=== PATIENT | female | born 1955 | race Caucasian/White ===

== ENCOUNTER → 2017-11-08 | Outpatient (CLI) | payer OTHER ==
--- NOTE | 2017-11-08 12:28 | Diagnostic Imaging Report ---
Right lower extremity arterial Doppler. INDICATION: Leg pain. Spectral and color-flow imaging of the arterial system of the right lower extremity was performed. There are no prior studies available for comparison. FINDINGS: There is good arterial blood flow in the common femoral, superficial femoral and popliteal arteries. Triphasic and biphasic waveforms were seen and there is no abrupt alteration of velocities to suggest a hemodynamically significant stenosis. However, there is only a single trifurcation artery identified. This is the posterior tibial artery. There seems to fairly good arterial blood flow in this vessel. The anterior tibial and peroneal arteries were not well imaged, however. This may be secondary to trifurcation disease and this may account for the patient's lower leg pain. If further imaging is desired, then CTA of the aorta with bilateral runoffs would be recommended. IMPRESSION: There is good arterial blood flow in the common femoral, superficial femoral and popliteal veins and in the posterior tibial artery. However, the poor visualization of the peroneal and anterior tibial arteries may be secondary to trifurcation disease. Recommendations as above. Dictated by: Dictated on workstation # [id number]
== END ==
LOC: RAD 08:44
PROVIDERS: ATTEND Surgery
DX: I73.9 Peripheral vascular disease, unspecified (principal)
CPT/HCPCS: 93926

== ENCOUNTER 2017-11-22 08:49 | Outpatient (CLI) | payer OTHER ==
[~2017-11-22] VITALS: Ht 157.5 cm; Wt 49.9 kg
[2017-11-22] MEDS ORDERED: LEVE250T5 PO (09:45)
[2017-11-22] MEDS ORDERED: VARE1TAB22 PO (09:45)
== END 2017-11-22 09:55 | disposition home or self-care (01) ==
LOC: PREOP 08:49
PROVIDERS: ATTEND Surgery
DX: Z01.818 Encounter for other preprocedural examination (principal)

== ENCOUNTER 2017-11-27 08:08 | Inpatient (IN) | payer MEDICARE, OTHER ==
[~2017-11-27] VITALS: Ht 157.5 cm; Wt 49.9 kg
[~2017-11-27 08:08] MED LIST: LEVE250T5 PO; VARE1TAB22 PO
--- OUTSIDE RECORDS SUMMARY | 2017-11-27 08:13 | XMS REPORT | CCD ---
Author Author Adore Reyes Organization Adore Reyes MD, [facility] Address [address] [place] [address] Phone Care Team Providers Care Utility Appraiser Name Role Phone PP Unavailable CCM Unavailable Summary Purpose Interface Exchange Insurance Providers Payer name Policy type / Coverage type Covered alliance party ID Effective Begin Date Effective End Date [facility] Commercial Insurance [id number] 2017 Unknown Family history Father Diagnosis Age At Onset Cancer Unknown Mother Diagnosis Age At Onset Breast cancer Unknown Sister Diagnosis Age At Onset Breast cancer Unknown Social History Social History Element Codes Description Effective Dates Marital status Unknown 03/18/2017 Number of children Unknown 1 03/18/2017 Employment Unknown Currently unemployed Disabled 03/18/[address]: [id number] Current every day smoker 03/18/2017 Number of years using tobacco Unknown 40 - 50 44 years 03/18/2017 Number of cigarettes/day Unknown 10 ( Half a pack) 03/18/2017 Alcohol history Unknown pt chooses not to answer 03/18/2017 On Disability Unknown Yes 03/18/2017 Allergies, Adverse Reactions, Alerts Allergies, Adverse Reactions, Alerts data not found Past Medical History Illness Codes Condition Status Onset Date Resolved Date Encounter for general adult medical examination with abnormal findings ICD-9: V70.0 ICD-10: Z00.01 Active 03/18/2017 Unknown Other articular cartilage disorders, right foot ICD-9: 718.07 ICD-10: M24.174 Active 03/18/2017 Unknown Other generalized epilepsy and epileptic syndromes, not intractable, without status epilepticus ICD -9: 345.00 ICD-10: G40.409 Active 03/18/2017 Unknown Other organ or system involvement in systemic lupus erythematosus ICD-9: 710.0 ICD-10: M32.19 Active 03/18/2017 Unknown Tobacco use ICD-9: 305.1 ICD-10: Z72.0 Active 03/18/2017 Unknown Problems Condition Codes Effective Dates Condition Status Encounter for general adult medical examination with abnormal findings ICD-9: V70.0 ICD-10: Z00.01 03/18/2017 Active Other articular cartilage disorders, right foot ICD-9: 718.07 ICD-10: M24.174 03/18/2017 Active Other generalized epilepsy and epileptic syndromes, not intractable, without status epilepticus ICD -9: 345.00 ICD-10: G40.409 03/18/2017 Active Other organ or system involvement in systemic lupus erythematosus ICD-9: 710.0 ICD-10: M32.19 03/18/2017 Active Tobacco use ICD-9: 305.1 ICD-10: Z72.0 03/18/2017 Active Medications Medication Codes Instructions Start Date Stop Date Status Fill Instructions Chantix 1 mg tablet RxNorm: 039839 1 Tablet(s) PO BID 201705/11/2018 Active hydrocodone 10 mg-acetaminophen 325 mg tablet RxNorm: 211238 1-2 Tablet(s) PO TID as needed 03/18/2017 04/16/2017 Active Chantix Starting Month Box 0.5 mg (11)-1 mg (42) tablets in dose pack RxNorm: 258132 1 Tablet(s) PO UD 03/18/20172017 Active Keppra 250 mg tablet RxNorm: 474682 1 Tablet(s) PO BID 201703/12/2018 Active Ambien 10 mg tablet RxNorm: 900040 1 Tablet(s) PO QHS No Start Date Active gabapentin 300 mg capsule RxNorm: 547686 1 Capsule(s) PO TID No Start Date Active etodolac 400 mg tablet RxNorm: 369495 1 Tablet(s) PO daily No Start Date Active Keppra 250 mg tablet RxNorm: 740677 1 Tablet(s) PO BID No Start Date 03/17/2017 Inactive hydrocodone 10 mg-acetaminophen 325 mg tablet RxNorm: 214704 1-2 Tablet(s) PO as needed No Start Date 03/17/2017 Inactive Chantix oral RxNorm: oral No Start Date Inactive Medication Administered No Medication Administered data Immunizations No Immunization data Assessments Condition Codes Effective Dates Encounter for general adult medical examination with abnormal findings ICD-10: Z00.01 ICD-9: V70.0 03/18/2017 Other generalized epilepsy and epileptic syndromes, not intractable, without status epilepticus ICD-10: G40.409 ICD-9: 345.00 03/18/2017 Tobacco use ICD-10: Z72.0 ICD-9: 305.1 03/18/2017 Other organ or system involvement in systemic lupus erythematosus ICD-10: M32.19 ICD-9: 710.0 03/18/2017 Other articular cartilage disorders, right foot ICD-10: M24.174 ICD-9: 718.07 03/18/2017 Reason For Visit Reason For Visit Effective Dates Notes ankle pain 03/18/2017 Results No Results data Review of Systems System Result Effective Dates Constitutional No recent illness 2017 Constitutional No chills 03/18/2017 Constitutional fatigue 03/18/2017 Constitutional No fever 03/18/2017 Constitutional No insomnia 03/18/2017 Constitutional malaise 03/18/2017 Eyes No vision change 03/18/2017 Ears/Nose/Throat/Neck No dental pain Ears/Nose/Throat/Neck No dizziness 2017 Ears/Nose/Throat/Neck No dysphagia 2017 Ears/Nose/Throat/Neck No headache 2017 Ears/Nose/Throat/Neck No hearing loss Ears/Nose/Throat/Neck No nasal allergies 03/18/2017 Ears/Nose/Throat/Neck No sore throat Ears/Nose/Throat/Neck No postnasal drip 03/18/2017 Ears/Nose/Throat/Neck No sinus congestion 03/18/2017 Cardiovascular No chest pain/pressure Cardiovascular No dyspnea 03/18/2017 Cardiovascular No edema 03/18/2017 Cardiovascular No exercise intolerance Cardiovascular No fatigue 03/18/2017 Cardiovascular No near-syncope/dizziness 03/18/2017 Respiratory No chest tightness 2017 Respiratory No cough 03/18/2017 Respiratory No dyspnea 03/18/2017 Respiratory No pedal edema 03/18/2017 Gastrointestinal No abdominal pain 2017 Gastrointestinal No constipation 2017 Gastrointestinal No diarrhea 03/18/2017 Gastrointestinal No gastroesophageal reflux 03/18/2017 Gastrointestinal No nausea 03/18/2017 Gastrointestinal No vomiting 03/18/2017 Genitourinary/Nephrology No dysuria 03/18 Genitourinary/Nephrology No nocturia Genitourinary/Nephrology No urinary incontinence 03/18/2017 Musculoskeletal stiffness 03/18/2017 Musculoskeletal No swelling 03/18/2017 Musculoskeletal No muscle weakness 2017 Musculoskeletal No myalgias 03/18/2017 Dermatologic No rash 03/18/2017 Dermatologic No sores 03/18/2017 Neurologic No dizziness 03/18/2017 Neurologic No headache 03/18/2017 Neurologic No neck pain 03/18/2017 Neurologic No syncope 03/18/2017 Psychiatric No anxiety 03/18/2017 Psychiatric No depression 03/18/2017 Musculoskeletal arthralgia(s) 03/18/2017 Physical Exam Exam Name System Name Item Name Status Result Effective Dates Notes Full Exam - General 1994 Constitutional general appearance Development: well developed 03/18/2017 None Full Exam - General 1994 Constitutional general appearance Development: appears stated age 0103/18/2017 None Full Exam - General 1994 Constitutional general appearance Hygiene/Attention to Grooming: good hygiene 03/18/2017 None Full Exam - General 1994 Eyes conjunctiva /eyelids Overall: conjunctiva clear 03/18/2017 None Full Exam - General 1994 Eyes conjunctiva /eyelids Overall: cornea clear 03/18/2017 None Full Exam - General 1994 Eyes conjunctiva /eyelids Overall: eyelids normal 03/18/2017 None Full Exam - General 1994 Eyes pupils and irises Overall: pupils equal, round, reactive to light and accomodation 03/18/2017 None Full Exam - General 1994 Ears/Nose/Throat otoscopic exam Overall: external auditory canals clear 03/18/2017 None Full Exam - General 1994 Ears/Nose/Throat otoscopic exam Overall: tympanic membranes clear 03/18/2017 None Full Exam - General 1994 Ears/Nose/Throat lips/teeth/gingiva Overall: benign lips 03/18/2017 None Full Exam - General 1994 Ears/Nose/Throat lips/teeth/gingiva Overall: normal dentition 03/18/2017 None Full Exam - General 1994 Ears/Nose/Throat oral cavity/pharynx/larynx Overall: oral mucosa clear 03/18/2017 None Full Exam - General 1994 Ears/Nose/Throat oral cavity/pharynx/larynx Overall: oropharyngeal mucosa clear 03/18/2017 None Full Exam - General 1994 Ears/Nose/Throat oral cavity/pharynx/larynx Overall: hypopharynx benign 03/18/2017 None Full Exam - General 1994 Ears/Nose/Throat oral cavity/pharynx/larynx Overall: no masses 03/18/2017 None Full Exam - General 1994 Respiratory auscultation Overall: breath sounds clear bilaterally 03/18/2017 None Full Exam - General 1994 Respiratory respiratory effort/rhythm Overall: no retractions 03/18/2017 None Full Exam - General 1994 Respiratory respiratory effort/rhythm Overall: normal rate 03/18/2017 None Full Exam - General 1994 Cardiovascular extremities Overall: no clubbing 03/18/2017 None Full Exam - General 1994 Cardiovascular auscultation of heart Overall: regular rate 03/18/2017 None Full Exam - General 1994 Cardiovascular auscultation of heart Overall: normal heart sounds 03/18/2017 None Full Exam - General 1994 Abdomen abdominal exam Overall: no tenderness 03/18/2017 None Full Exam - General 1994 Abdomen abdominal exam Overall: normal bowel sounds 03/18/2017 None Full Exam - General 1994 Lymphatic neck nodes Overall: anterior cervical chain benign 03/18/2017 None Full Exam - General 1994 Lymphatic neck nodes Overall: posterior cervical chain benign 03/18/2017 None Full Exam - General 1994 Musculoskeletal spine, ribs and pelvis Overall: spine benign 03/18/2017 None Full Exam - General 1994 Musculoskeletal spine, ribs and pelvis Overall: sacroiliac joint benign 03/18/2017 None Full Exam - General 1994 Musculoskeletal spine, ribs and pelvis Overall: good posture 03/18/2017 None Full Exam - General 1994 Musculoskeletal head and neck Overall: head atraumatic 03/18/2017 None Full Exam - General 1994 Musculoskeletal head and neck Overall: cervical spine benign 03/18/2017 None Full Exam - General 1994 Integument inspection of skin Overall: few scattered moles, no gross abnormalities 03/18/2017 None Full Exam - General 1994 Neurologic deep tendon reflexes Overall: deep tendon reflexes intact 03/18/2017 None Full Exam - General 1994 Neurologic cranial nerves Overall: crainial nerves 2 - 12 grossly intact 03/18/2017 None Full Exam - General 1994 Psychiatric orientation/consciousness Overall: oriented to person, place and time 03/18/2017 None Full Exam - General 1994 Psychiatric mood and affect Overall: normal mood and affect 03/18/2017 None Procedures No Procedures data Vital Signs Date Vital 03/18/2017 Blood Pressure 1: 116/74 Code : 8480-6 BMI: 21.8 Code : 28748-9 Heart Rate 1 : 88 bpm Height: 5'3" SpO2: 95% Weight: 123 lbs Functional Status No Functional Status data History of Present Illness Symptom Name Status Result Effective Date Notes ankle pain Location on the right 03/18/2017 None ankle pain Quality throbbing 03/18/2017 None ankle pain Quality chronic 03/18/2017 None ankle pain Quality worsening 03/18/2017 None ankle pain Quality aching 03/18/2017 None ankle pain Quality dull pain 03/18/2017 None ankle pain Pertinent Findings decreased range of motion 03/18/2017 None ankle pain Pertinent Findings pain with movement 03/18/2017 None ankle pain Pertinent Findings stiffness 03/18/2017 None ankle pain Pertinent Findings swelling 03/18/2017 None ankle pain Pertinent Findings weakness during ambulation 03/18/2017 None ankle pain Pertinent Findings limping 03/18/2017 None ankle pain Mechanism of injury direct trauma 03/18/2017 fall from height ankle pain Alleviating Factors CAM boot 03/18/2017 None ankle pain Onset and Resolution ongoing 03/18/2017 None ankle pain Onset of Symptom 2-3 years ago 03/18/2017 None ankle pain Limitation on Activities allows weight bearing activity 03/18/2017 None ankle pain Limitation on Activities is incapacitating 03/18/2017 None ankle pain Severity moderate 03/18/2017 None ankle pain Significant Medical Conditions prior injury 03/18/2017 None ankle pain Significant Medical Conditions prior history of fracture involving the ankle 03/18/2017 None ankle pain Significant Medical Conditions prior history of ankle instability 03/18/2017 None Advance Directives No Advance Directive data Encounters Encounter Performer Location Codes Date (72960) PREV VISIT EST AGE 40-64 Diagnosis: Encounter for general adult medical examination with abnormal findings[ICD10: Z00.01] [facility] CPT-4: 48748 03/18/2017 Plan of Care Planned Activity Notes Codes Status Date Visit Plan: Well Adult - pt was counseled about diet, exercise, and encouraged to follow a heart healthy diet and increase activity level. The patient was instructed to RTC yearly for well adult exams and PRN for acute illnesses. The pt was also instructed to have yearly labs for check of cholesterol, thyroid, chem panel, CBC, and renal functioning. Tobacco abuse - continue with current plan for pt to start on chantix. Lupus - chronic - pt has decreased sensation of lower extremities - pt needs to stop smoking, and we will continue with supportive care of the patient. Ankle pain - I called Dr. Aaron - we discussed the patient - She has agreed that if Dr. Agnieszka orta recommends that she will have her leg amputated. I have discussed this with Dr. Aaron and he will have this discussion with the patient about amputation. He Agrees and has previously recommended amputation of her right leg at the ankle. 03/18/2017 Patient Education: Patient Medication Summary Completed 03/18/2017 Instructions Comment . Well Adult - pt was counseled about diet, exercise, and encouraged to follow a heart healthy diet and increase activity level. The patient was instructed to RTC yearly for well adult exams and PRN for acute illnesses. The pt was also instructed to have yearly labs for check of cholesterol, thyroid, chem panel, CBC, and renal functioning. Tobacco abuse - continue with current plan for pt to start on chantix. Lupus - chronic - pt has decreased sensation of lower extremities - pt needs to stop smoking, and we will continue with supportive care of the patient. Ankle pain - I called Dr. Aaron - we discussed the patient - She has agreed that if Dr. Agnieszka orta recommends that she will have her leg amputated. I have discussed this with Dr. Aaron and he will have this discussion with the patient about amputation. He Agrees and has previously recommended amputation of her right leg at the ankle.
[2017-11-27] MEDS: LACTATED RINGERS 1,000 ML IV PRN ×2 (08:20→10:28)
[2017-11-27 08:25] VITALS: BP 120/64
[2017-11-27 08:37] LABS: BASOPHILS % (AUTO) 0 % (0-10); EOSINOPHILS # (AUTO) 0.1 10^3/uL (0.0-0.3); EOSINOPHILS % (AUTO) 1 % (0-10); HEMATOCRIT 41 % (35-52); HEMOGLOBIN 13.9 G/DL (11.5-16.0); LYMPHOCYTES # (AUTO) 1.5 X 10^3 (1.0-4.0); LYMPHOCYTES % (AUTO) 23 % (12-44); MEAN CORPUSCULAR HEMOGLOBIN 29 PG (25-34); MEAN CORPUSCULAR HGB CONC 34 G/DL (32-36); MEAN CORPUSCULAR VOLUME 85 FL (80-99); MEAN PLATELET VOLUME 9.8 FL (7.4-10.4); MONOCYTES # (AUTO) 0.4 X 10^3 (0.0-1.0); MONOCYTES % (AUTO) 6 % (0-12); NEUTROPHILS # (AUTO) 4.5 X 10^3 (1.8-7.8); NEUTROPHILS % (AUTO) 70 % (42-75); PLATELET COUNT 311 10^3/uL (130-400); RED BLOOD COUNT 4.81 10^6/uL (4.35-5.85); RED CELL DISTRIBUTION WIDTH 13.2 % (10.0-14.5); WHITE BLOOD COUNT 6.5 10^3/uL (4.3-11.0)
[2017-11-27] MEDS ORDERED: ceFAZolin INJECTION 1,000 MG in NS (IVPB) 50 ML IV ONE (08:45)
[2017-11-27] MEDS ORDERED: fentaNYL INJECTION 100 MCG/2 ML AMP ONE ×2 (08:46→10:14)
[2017-11-27] MEDS ORDERED: MIDAZOLAM 2 MG/2 ML (VERSED) VIAL ONE (08:46)
--- NOTE | 2017-11-27 08:59 | Progress Note-Pre Operative ---
Pre-Operative Progress Note H&P Reviewed The H&P was reviewed, patient examined and no changes noted. 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
[2017-11-27] MEDS ORDERED: LIDOCAINE PF 2% 5 ML (XYLOCAINE) VIAL ONE (09:13)
[2017-11-27] MEDS ORDERED: ONDANSETRON 4 MG/2 ML (SDV) Z0FRAN ONE (09:13)
[2017-11-27] MEDS ORDERED: proPOfol 200 MG/20 ML (DIPRIVAN) VIAL IV ONE (09:13)
[2017-11-27] MEDS ORDERED: BUP/EPI 0.5% 1:200,000 (SENSORCAINE) 30 ML VIAL ONE (09:14)
[2017-11-27] MEDS ORDERED: SEVOFLURANE (ULTANE) 15 ML INHAL SOLN ONE ×5 (09:28→11:37)
[2017-11-27] MEDS ORDERED: PHENYLEPHRINE 100 MCG/ML 10 ML (ANESTHESIA) SYR ONE (10:04)
--- NOTE | 2017-11-27 11:45 | Operative Report ---
Operative Report Date of Procedure/Surgery Nov 27, 2017 Surgeon (s) CROW MARTINEZ MD Receptionist/Telephone Operator (s): Ana Maddox ( Med Student III) Post-Operative Diagnosis same Procedure Performed above knee amputation right side Description of Procedure Anesthesia Type: General Estimated blood loss (mL): 50 mL Specimen(s) collected/removed right lower extremity Description of the Procedure Indication for the procedure: This lady has a nonfunctional right ankle joint resulting from multiple operations with nonunion and loosening of hardware. In addition, she has severe osteoarthritis of the ipsilateral knee joint, requiring knee replacement. After careful consideration, it was felt reasonable to perform an [id number] amputation, to facilitate fitting a functional prosthesis. Noninvasive vascular studies were performed to ensure adequate perfusion. Informed consent was obtained after reviewing the operative details and complications of postoperative wound infection, dehiscence of the flaps and cardiorespiratory dysfunction. description of the procedure: She was placed supine on the operating table and general anesthesia induced. A gram of Ancef was administered intravenously as prophylaxis against wound infection. Right lower extremity was prepared and draped in the usual sterile manner. A tourniquet was placed over the proximal thigh being applied before making the skin incision. Preemptive analgesia was established using 0.5 percent Marcaine with epinephrine. A fishmouth type of vision was made at a centimeters proximal to the knee joint and flaps were raised. Great saphenous vein was controlled using 0 silk sutures. Muscles and tendons around the femur were divided sharply up to the periosteum. Sciatic nerve and the branches of the femoral nerve were ligated with 0 silk sutures. Popliteal artery was ligated with the same suture material. Popliteal vein was managed with 0 silk sutures as well Periosteum of the femur was elevated and the bone transected using an electric saw, 3 cm proximal to the skin incision. The edges were smoothened out and bone wax placed over the marrow. The tourniquet was then released and minimal bleeding from the muscle controlled using ligaclips. The tourniquet time was about 35 minutes. Muscle tissue was approximated using interrupted 2-0 PDS sutures. The fascia was closed using the same material, in an interrupted fashion. Subcutaneous tissue was approximated using the same material and skin with haylee. A nonadherent dressing was then applied. She tolerated procedure well, was extubated in the operative room and taken to the recovery room in a stable condition. Findings of the Procedure See op report Allergies and Home Medications Allergies Coded Allergies: No Known Drug Allergies (Unverified , 11/22/17) Home Medications Levetiracetam 250 Mg Tablet, 250 MG PO BID, (Reported) Varenicline Tartrate 1 Mg Tablet, 1 MG PO BID, (Reported) Patient Home Medication List Home Medication List Reviewed: Yes CROW MARTINEZ MD Nov 27, 2017 11:45
[2017-11-27] MEDS ORDERED: PATIENT MAY USE OWN MEDS, ALL PO SCH (12:00)
[2017-11-27] MEDS ORDERED: MEPERIDINE (DEMEROL) INJ 50 MG/ML IVP ONE (12:00)
[2017-11-27] MEDS ORDERED: ONDANSETRON 4 MG/2 ML (SDV) Z0FRAN IVP PRN (12:00)
[2017-11-27] MEDS ORDERED: morphine INJ 10 MG/ML 1ML (SYR OR VIAL) IVP ONE (12:00)
[2017-11-27] MEDS ORDERED: fentaNYL INJECTION 100 MCG/2 ML AMP IVP ONE (12:00)
[2017-11-27] MEDS ORDERED: HYDROmorphone 2 MG/ML VIAL (DILAUDID) ONE (12:47)
[2017-11-27] MEDS ORDERED: HYDROmorphone 2 MG/ML VIAL (DILAUDID) IV ONE (13:30)
[2017-11-27] MEDS ORDERED: diphenhydrAMINE 50 MG/ML INJ (BENADRYL) IVP ONE (13:45)
[2017-11-27 13:50] VITALS: BP 160/65
[2017-11-27] MEDS ORDERED: diphenhydrAMINE 25 MG TAB (BENADRYL) PO PRN (14:30)
[2017-11-27] MEDS: oxyCODONE/APAP 5/325MG (PERCOCET 5) TABLET PO PRN ×2 (15:20→20:19)
[2017-11-27] MEDS: fentaNYL INJECTION 100 MCG/2 ML AMP IV PRN ×3 (16:01→21:11)
[2017-11-27] MEDS: ceFAZolin INJECTION 1,000 MG in NS (IVPB) 50 ML IV SCH ×2 (16:05→23:40)
[2017-11-27] MEDS: LACTATED RINGERS 1,000 ML IV SCH (16:06)
[2017-11-27 16:28] LABS: BUN/CREATININE RATIO 12; CALCIUM 8.7 MG/DL (8.5-10.1); CARBON DIOXIDE 24 MMOL/L (21-32); CHLORIDE 101 MMOL/L (98-107); CREATININE SERUM 0.58 MG/DL (0.60-1.30); GFR ESTIMATED > 60; GLUCOSE 117 MG/DL (70-105); POTASSIUM 4.2 MMOL/L (3.6-5.0); SODIUM 133 MMOL/L (135-145)
[2017-11-27 16:33] VITALS: BP 142/65
[2017-11-27] MEDS: ONDANSETRON 4 MG/2 ML (SDV) Z0FRAN IVP PRN (16:34)
[2017-11-27 19:18] VITALS: BP 146/63
[2017-11-27] MEDS: LEVETIRACETAM 500 MG (KEPPRA) TAB PO SCH (20:19)
[2017-11-27] MEDS ORDERED: LEVETIRACETAM 250 MG PO SCH (21:00)
[2017-11-27] MEDS ORDERED: NON-FORMULARY MEDICATION 1 EA EA (Varenicline Tartrate (Chantix) 1 MG) PO SCH (21:00)
[2017-11-28] MEDS: oxyCODONE/APAP 5/325MG (PERCOCET 5) TABLET PO PRN ×5 (00:46→21:44)
[2017-11-28 00:56] VITALS: BP 123/59
[2017-11-28] MEDS: LACTATED RINGERS 1,000 ML IV SCH ×3 (01:10→19:40)
[2017-11-28] MEDS: fentaNYL INJECTION 100 MCG/2 ML AMP IV PRN ×6 (03:37→22:13)
[2017-11-28 04:45] VITALS: BP 138/62
[2017-11-28 08:00] VITALS: BP 128/70
--- NOTE | 2017-11-28 08:37 | Consultation ---
History of Present Illness History of Present Illness Patient Consulted On(perico/time) 11/28/17 08:37 Allergies and Home Medications Allergies Coded Allergies: No Known Drug Allergies (Unverified , 11/22/17) Home Medications Levetiracetam 250 Mg Tablet, 250 MG PO BID, (Reported) Varenicline Tartrate 1 Mg Tablet, 1 MG PO BID, (Reported) Past Lxghomy-Gmhqev-Fxusyt Hx Patient Social History Alcohol Use: Denies Use Recreational Drug Use: No Smoking Status: Former Smoker Former Smoker, Quit: Sep 18, 2017 Recent Foreign Travel: No Contact w/Someone Who Travel: No Recent Infectious Disease Expo: No Recent Hopitalizations: No Immunizations Up To Date PED Vaccines UTD: No Date of Influenza Vaccine: Oct 23, 2017 Seasonal Allergies Seasonal Allergies: No Past Medical History Surgeries: Yes (bilat mastectomy with revision, L TKR, R wrist fx, R ankle fx) Respiratory: No Cardiac: Yes (peripheral vascular disease) Neurological: Yes (epilepsy-no recent seizure) Genitourinary: No Gastrointestinal: No Musculoskeletal: Yes (osteoarthritis) Fractures Endocrine: Yes HEENT: No Cancer: No Psychosocial: No Integumentary: No Blood Disorders: No (DVT after LKR) Family Medical History Alzheimer's disease 19 MOTHER FH: breast cancer 19 MOTHER Kidney disease 19 FATHER (KIDNEY CANCER) Physical Exam-General Problems Physical Exam Vital Signs Vital Signs - First Documented 11/27/17 08:25 Temp 97.2 Pulse 80 Resp 16 B/P (MAP) 120/64 (82) Pulse Ox 98 O2 Delivery Room Air Capillary Refill : Less Than 3 Seconds Clinical Quality Measures DVT/VTE Risk/Contraindication: Risk Factor Score Per Nursin RFS Level Per Nursing on Admit: 2=Moderate QUIANA GUILLEN MD Nov 28, 2017 08:37
--- NOTE | 2017-11-28 08:53 | Anesthesia-General Post-Op ---
General Patient Condition Mental Status/LOC: Same as Preop Cardiovascular: Satisfactory Nausea/Vomiting: Present (pt reports post op nausea) Respiratory: Satisfactory Pain: Controlled Complications: Absent Post Op Complications Complications None Follow Up Care/Instructions Patient Instructions None needed. Anesthesia/Patient Condition Patient Condition Patient is doing well, no complaints, stable vital signs, no apparent adverse anesthesia problems. No complications reported per nursing. BOAZ FRANCO CRNA Nov 28, 2017 08:53
[2017-11-28] MEDS: LEVETIRACETAM 500 MG (KEPPRA) TAB PO SCH ×2 (09:35→20:26)
[2017-11-28] MEDS: ceFAZolin INJECTION 1,000 MG in NS (IVPB) 50 ML IV SCH (09:35)
[2017-11-28 12:00] VITALS: BP 149/72
[2017-11-28] MEDS: ENOXAPARIN 40 MG/0.4 ML (LOVENOX) SYR SC SCH (12:38)
--- NOTE | 2017-11-28 14:03 | Progress Note-Standard ---
Standard Progress Note Progress Notes/Assess & Plan Date Seen by a Provider: Nov 28, 2017 Time Seen by a Provider: 10:30 Progress/Assessment & Plan Pain control inadequate. Postoperative nausea vomiting last night, improved. Vital signs stable. She reports pain over the right hip but exam is unremarkable. We will examine the wound tomorrow. Final Diagnosis Nonfunctional right angle with osteoarthritis of the right knee. CROW MARTINEZ MD Nov 28, 2017 14:02
[2017-11-28] MEDS: ONDANSETRON 4 MG/2 ML (SDV) Z0FRAN IVP PRN (14:29)
[2017-11-28 16:50] VITALS: BP 152/75
[2017-11-28] MEDS: METOCLOPRAMIDE INJ 10 MG/2 ML (REGLAN) IVP SCH (17:19)
[2017-11-28 20:20] VITALS: BP 125/72
[2017-11-29] MEDS: METOCLOPRAMIDE INJ 10 MG/2 ML (REGLAN) IVP SCH ×5 (00:03→23:28)
[2017-11-29 00:19] VITALS: BP 104/65
[2017-11-29 04:18] VITALS: BP 108/66
[2017-11-29] MEDS: oxyCODONE/APAP 5/325MG (PERCOCET 5) TABLET PO PRN ×3 (04:22→17:46)
[2017-11-29] MEDS: fentaNYL INJECTION 100 MCG/2 ML AMP IV PRN (04:57)
[2017-11-29 08:00] VITALS: BP 113/69
[2017-11-29] MEDS ORDERED: PANTOPRAZOLE 40 MG (PROTONIX) VIAL IV SCH (09:00)
--- NOTE | 2017-11-29 09:01 | Progress Note-Standard ---
Standard Progress Note Progress Notes/Assess & Plan Date Seen by a Provider: Nov 29, 2017 Time Seen by a Provider: 08:59 Progress/Assessment & Plan Pain control inadequate. Postoperative nausea vomiting last night, improved. Vital signs stable. She reports pain over the right hip but exam is unremarkable. We will examine the wound tomorrow. Pain control optimized. PONV resolved. Mild echymosis of the posterior flap, will observe. She reports being able to transfer from bed to a whell chair without additional help and wishes to be discharged. This appears to be reasonable. Final Diagnosis Non-functional right ankle with severe OA of right knee. CROW MARTINEZ MD Nov 29, 2017 09:01
[2017-11-29] MEDS ORDERED: OXYC1TAB87 PO (09:02)
--- NOTE | 2017-11-29 09:04 | Discharge Inst-Simple/Standard ---
Discharge Inst-Standard Discharge Medications New, Converted or Re-Newed RX: RX on Chart Patient Instructions/Follow Up Plan of Care/Instructions/FU: Please order a wheel chair. F/U with me on Saturday Activity as Tolerated: Yes Discharge Diet: No Restrictions CROW MARTINEZ MD Nov 29, 2017 09:04
--- NOTE | 2017-11-29 09:12 | Progress Note ---
Objective Exam Last Set of Vital Signs Vital Signs Date Time Temp Pulse Resp B/P (MAP) Pulse Ox O2 Delivery O2 Flow Rate FiO2 11/29/17 08:00 97.4 79 16 113/69 (84) 92 Room Air Capillary Refill : Less Than 3 Seconds I&O Intake and Output 11/29/17 00:00 Intake Total 3130 ml Output Total 3250 ml Balance -120 ml Intake Oral 1070 ml IV Total 2060 ml Output Urine Total 3250 ml # Voids 5 Results Lab Microbiology 11/27/17 MRSA Screen - Final, Complete MRSA not isolated Clinical Quality Measures DVT/VTE Risk/Contraindication: Risk Factor Score Per Nursin RFS Level Per Nursing on Admit: 2=Moderate QUIANA GUILLEN MD Nov 29, 2017 09:12
[2017-11-29] MEDS ORDERED: OXYC15TA73 PO (09:22)
[2017-11-29] MEDS: LEVETIRACETAM 500 MG (KEPPRA) TAB PO SCH ×2 (09:28→20:30)
[2017-11-29] MEDS: oxyCODONE ER 15 MG (oxyCONTIN CR) TAB PO SCH ×2 (09:29→20:29)
[2017-11-29] MEDS: ENOXAPARIN 40 MG/0.4 ML (LOVENOX) SYR SC SCH (11:57)
[2017-11-29 12:00] VITALS: BP 144/81
--- NOTE | 2017-11-29 16:20 | Physical Therapy Evaluation ---
PT Evaluation-General Medical Diagnosis Admission Date Nov 27, 2017 at 08:08 Medical Diagnosis: right AKA Onset Date: Nov 27, 2017 Therapy Diagnosis Therapy Diagnosis: impaired mobility, strength, endurance, ROM Height/Weight Height (Feet): 5 Height (Inches): 2.00 Weight (Pounds): 110 Weight (Ounces): 0.0 Precautions Precautions/Isolations: Standard Precautions Weight Bear Status Right Lower Extremity: Right Full Weight Bearing Left Lower Extremity: Left Non Weight Bearing Referral Physician: Epifanio Power MD Reason for Referral: Evaluation/Treatment Medical History Pertinent Medical History: OA, PVD Additional Medical History epilepsy, former smoker, surg (bilateral mastectomy, left TKR, right wrist, right ankle) Reviewed History: Yes Social History Home: Single Level Current Living Status: Children Entry Into Home: Stairs Without Railing PT Steps Into Home: 1 Patient states the step is very tiny. Prior/Core FIM Prior Level of Function Functional [place] Measure 0=Not Assessed/NA 4=Minimal Assistance 1=Total Assistance 5=Supervision or Setup 2=Maximal Assistance 6=Modified [place] 3=Moderate Assistance 7=Complete [place] Bed Mobility: 7 Transfers (B,C,W/C) (FIM): 7 Gait: 7 PT Evaluation-Current Subjective Patient in bed pre tx, agrees to PT, has no complaints of pain. Pt/Family Goals to go home and someday use a prosthetic leg Objective Patient Orientation: Person, Place, Situation ROM/Strength ROM Lower Extremities LLE WNL, RLE limited due to surgery Neuromuscular (Tone, Coordination, Reflexes) NT Sensory Vision: Wears Glasses Hearing: Functional Sensation Right Lower Extremit: Impaired Sensation Left Lower Extremity: Intact Sensation Lower Extremities Patient states her right residual limb is numb Transfers Functional [place] Measure 0=Not Assessed/NA 4=Minimal Assistance 1=Total Assistance 5=Supervision or Setup 2=Maximal Assistance 6=Modified [place] 3=Moderate Assistance 7=Complete [place] Transfers (B, C, W/C) (FIM): 4 Scootin Rollin Supine to/from Sit: 6 Sit to/from Stand: 4 Gait Mode of Locomotion: Walk Anticipated Mode of Locomotion: Walk Gait (FIM): 1 Distance: 20' Gait Level of Assist: 4 Gait Persons Needed: 1 Gait Assistive Device: Cane Large Base Quad Comments/Gait Description Patient ambulates slowly, a little unsteady but no LOB, keeps her right residual limb flexed at the hip. Balance Sitting Static: Normal Sitting Dynamic: Normal Standing Static: Fair Standing Dynamic: Fair Treatment right residual limp supine AROM in all planes Assessment/Needs Patient has impaired mobility, strength, endurance, ROM post right AKA Rehab Potential: Fair PT Short Term Goals Short Term Goals Time Frame: Dec 06, 2017 Transfers (B,C,W/C) (FIM): 6 Gait (FIM): 2 Gait Distance Comment: 50' Gait Level of Assist: 5 Gait Assistive Device: FWW PT Plan Problem List Problem List: Activity Tolerance, Functional Strength, Safety, Balance, Gait, Transfer, Bed Mobility, ROM Treatment/Plan Treatment Plan: Continue Plan of Care Treatment Plan: Bed Mobility, Education, Functional Activity [place], Functional Strength, Gait, Safety, Therapeutic Exercise, Transfers Treatment Duration: Dec 06, 2017 Frequency: 6 times per week Estimated Hrs Per Day: .25 hour per day (15-30') Patient and/or Family Agrees t: Yes Safety Risks/Education Patient Education: Gait Training, Transfer Techniques, Correct Positioning, Disease Process, Safety Issues Teaching Recipient: Patient Teaching Methods: Demonstration, Discussion Response to Teaching: Reinforcement Needed Discharge Recommendations Plan Patient will perform bed mobility and transfer training, balance and endurance training, functional strengthening, stair training, gait training, and education , to improve functional mobility and independence at home. Therapy D/C Recommendations: Home w/ Family Support Time/GCodes Time In: 1555 Time Out: 1608 Total Billed Treatment Time: 13 Total Billed Treatment 1 visit BISHOP 13' ASIA MERIDA PT Nov 29, 2017 16:20
[2017-11-29 16:23] VITALS: BP 101/56
[2017-11-29 20:10] VITALS: BP 104/60
[2017-11-30] VITALS: BP 109/56
[2017-11-30] MEDS: oxyCODONE/APAP 5/325MG (PERCOCET 5) TABLET PO PRN ×2 (02:17→09:16)
[2017-11-30] MEDS: fentaNYL INJECTION 100 MCG/2 ML AMP IV PRN (04:42)
[2017-11-30] MEDS: METOCLOPRAMIDE INJ 10 MG/2 ML (REGLAN) IVP SCH ×2 (06:13→12:26)
[2017-11-30] MEDS ORDERED: PANTOPRAZOLE 40 MG (PROTONIX) TAB PO SCH (07:00)
[2017-11-30 08:00] VITALS: BP 127/67
[2017-11-30] MEDS: oxyCODONE ER 15 MG (oxyCONTIN CR) TAB PO SCH (08:25)
[2017-11-30] MEDS: LEVETIRACETAM 500 MG (KEPPRA) TAB PO SCH (08:25)
[2017-11-30] MEDS ORDERED: BISACODYL 5 MG (DULCOLAX) TABLET PO ONE (09:16)
[2017-11-30] MEDS ORDERED: BISACODYL 5 MG (DULCOLAX) TABLET PO PRN (09:30)
--- NOTE | 2017-11-30 09:47 | Physical Therapy Progress Note ---
Therapy Progress Note SOLUTIONS ARCHITECT arrives and pt is sitting up in bed. Pt asks for pain med before tx begins , Nurse gives. Dr Barreto arrives and checks pt during tx. Pt reports being able to complete Ex and does not want to complete them now. SOLUTIONS ARCHITECT and pt discuss how to help prevent contracture/increased flexing at amputation site. Pt reports being able transfer and walk about independently, Nurse confirms. Pt does not want to complete ambulation nor Ex so SOLUTIONS ARCHITECT & pt just discuss pt education items including [facility]. Pt states just waiting for it on Saturday. 1, FA (15m) [phone] AREN TREVIZO SOLUTIONS ARCHITECT Nov 30, 2017 09:47
--- NOTE | 2017-11-30 10:19 | Progress Note-Hospitalist ---
Subjective HPI/CC On Admission Date Seen by Provider: Nov 30, 2017 Time Seen by Provider: 09:15 Subjective/Events-last exam Patient is frustrated on not being able to go home quite yet. Because of insurance we're having trouble getting a wheelchair and she notes that she's used one in the past successfully for long periods of time. She says that her AKA is somewhat uncomfortable but there's been no drainage. She denies having any chest pain or shortness of breath. Objective Exam Vital Signs Vital Signs Date Time Temp Pulse Resp B/P (MAP) Pulse Ox O2 Delivery O2 Flow Rate FiO2 11/30/17 08:00 97.9 89 20 127/67 (87) 90 Room Air Capillary Refill : Less Than 3 Seconds General Appearance: Chronically ill HEENT: Normal ENT Inspection Neck: Supple Respiratory: Lungs Clear, Normal Breath Sounds, No Accessory Muscle Use, No Respiratory Distress Cardiovascular: Regular Rate, Rhythm, Systolic Murmur Gastrointestinal: Normal Bowel Sounds, Non Tender, Soft Back: Normal Inspection Extremity: Slow Capillary Refill ( left), Other (right AKA with dry dressing) Neurologic/Psychiatric: Alert, Oriented x3, No Motor/Sensory Deficits, Normal Mood/Affect Results/Procedures Lab Patient resulted labs reviewed. Assessment/Plan Assessment and Plan Assess & Plan/Chief Complaint 1. status post right AKA secondary to peripheral vascular disease and nonfunctioning joint of the ankle and right knee pain\ 2. constipation we'll start Dulcolax 3. history tobaccoism on Chantix 4,. history seizure disorder on Keppra 5. inability to ambulate receiving physical therapy, social work working on dispensation with wheelchair Clinical Quality Measures DVT/VTE Risk/Contraindication: Risk Factor Score Per Nursin RFS Level Per Nursing on Admit: 2=Moderate TEDDY WORKMAN MD Nov 30, 2017 10:19 am
--- NOTE | 2017-11-30 10:22 | Progress Note ---
Subjective Date Seen by a Provider: Nov 30, 2017 Time Seen by a Provider: 10:10 Subjective/Events-last exam Pt doing fine, pt has not complaints. Pt waiting on wheelchair to be D/C. Denies fever, CP, SOB, N/V, abd pain. Objective Exam Vital Signs Date Time Temp Pulse Resp B/P (MAP) Pulse Ox O2 Delivery O2 Flow Rate FiO2 11/30/17 08:00 97.9 89 20 127/67 (87) 90 Room Air 11/30/17 08:00 Room Air 11/30/17 00:00 98.3 79 20 109/56 (73) 92 11/29/17 20:10 98.8 97 18 104/60 (75) 93 Room Air 11/29/17 16:23 99.5 100 18 101/56 (71) 93 Room Air 11/29/17 12:00 99.1 90 16 144/81 (102) 96 Room Air I & O 11/30/17 07:00 Intake Total 1520 ml Output Total 1100 ml Balance 420 ml Capillary Refill : Less Than 3 Seconds General Appearance: No Apparent Distress HEENT: PERRL/EOMI Neck: Supple Respiratory: No Accessory Muscle Use, No Respiratory Distress Cardiovascular: Regular Rate, Rhythm Extremity: Other (right AKA with dry dressing) Neurologic/Psychiatric: Alert, Oriented x3, Normal Mood/Affect, hackler doll wigs II-XII Norm as Tested Skin: Normal Color, Warm/Dry Results Lab Microbiology 11/27/17 MRSA Screen - Final, Complete MRSA not isolated Assessment/Plan Assessment/Plan Assessment/Plan status post right AKA Waiting of wheelchair for D/C home Dr. Go I have asked nursing hall supervisor to see if there is any way to get pt a wheelchair, rather than wasting 2 more days in the hospital. Clinical Quality Measures DVT/VTE Risk/Contraindication: Risk Factor Score Per Nursin RFS Level Per Nursing on Admit: 2=Moderate Physician Assessment Physician Assessment Scribed by Tom Barrientos MS3 for TRESSA [place] MEDICAL STUDENT Nov 30, 2017 10:22 YENY GO DO Nov 30, 2017 10:30
[2017-11-30] MEDS: ENOXAPARIN 40 MG/0.4 ML (LOVENOX) SYR SC SCH (12:26)
--- NOTE | 2017-12-06 15:23 | Discharge Summary ---
Diagnosis/Chief Complaint Date of Admission Nov 27, 2017 at 08:08 Date of Discharge Nov 30, 2017 at 13:52 Discharge Date: Nov 29, 2017 Discharge Time: 1700 Admission Diagnosis Admission Diagnosis nonfunctioning right ankle joint with loose hardware. Severe osteoarthritis of the right knee joint. Discharge Diagnosis same Reason Hospital Visit This lady had undergone multiple surgeries to address right angle injury and deformity. Eventually, the joint was nonfunctional. A below knee amputation was recommended by her navy fighter pilot. At this point, severe osteoarthritis of the right knee joint was discovered with recommendations for knee replacement. Under these circumstances, about the knee amputation followed by prosthetic limb fitting was felt to be a reasonable option. noninvasive vascular study was performed to ensure adequate perfusion of the thigh. Subsequently, she underwent surgery and as made a reasonable recovery. The time of discharge, the stump appeared to be healing satisfactorily. She had strained herself transferred from the bed to wheelchair prior to her hospital admission and was able to resume her previous status. She'll be followed up in my office for postoperative visit and subsequently arrangements for prosthetic limb fitting would be initiated.. Discharge Summary Procedures right [id number] amputation Consultations None Discharge Physical Examination Allergies: Coded Allergies: No Known Drug Allergies (Unverified , 11/22/17) Vitals & I&Os Vital Signs Date Time Temp Pulse Resp B/P (MAP) Pulse Ox O2 Delivery O2 Flow Rate FiO2 11/30/17 08:00 97.9 89 20 127/67 (87) 90 Room Air Hospital Course Labs (last 24 hrs) Laboratory Tests 11/27/17 08:30: White Blood Count 6.5, Red Blood Count 4.81, Hemoglobin 13.9, Hematocrit 41, Mean Corpuscular Volume 85, Mean Corpuscular Hemoglobin 29, Mean Corpuscular Hemoglobin Concent 34, Red Cell Distribution Width 13.2, Platelet Count 311, Mean Platelet Volume 9.8, Neutrophils (%) (Auto) 70, Lymphocytes (%) (Auto) 23, Monocytes (%) (Auto) 6, Eosinophils (%) (Auto) 1, Basophils (%) (Auto) 0, Neutrophils # (Auto) 4.5, Lymphocytes # (Auto) 1.5, Monocytes # (Auto) 0.4, Eosinophils # (Auto) 0.1, Basophils # (Auto) 0.0 11/27/17 16:06: Sodium Level 133L, Potassium Level 4.2, Chloride Level 101, Carbon Dioxide Level 24, Anion Gap 8, Blood Urea Nitrogen 7, Creatinine 0.58L, Estimat Glomerular Filtration Rate > 60, BUN/Creatinine Ratio 12, Glucose Level 117H, Calcium Level 8.7 Microbiology 11/27/17 MRSA Screen - Final, Complete MRSA not isolated Pending Labs Microbiology Date/Time Source Procedure Growth Status 11/27/17 08:41 Nasal MRSA Screen - Final MRSA not isolated Complete Laboratory Tests 11/27/17 08:30: White Blood Count 6.5, Red Blood Count 4.81, Hemoglobin 13.9, Hematocrit 41, Mean Corpuscular Volume 85, Mean Corpuscular Hemoglobin 29, Mean Corpuscular Hemoglobin Concent 34, Red Cell Distribution Width 13.2, Platelet Count 311, Mean Platelet Volume 9.8, Neutrophils (%) (Auto) 70, Lymphocytes (%) (Auto) 23, Monocytes (%) (Auto) 6, Eosinophils (%) (Auto) 1, Basophils (%) (Auto) 0, Neutrophils # (Auto) 4.5, Lymphocytes # (Auto) 1.5, Monocytes # (Auto) 0.4, Eosinophils # (Auto) 0.1, Basophils # (Auto) 0.0 11/27/17 16:06: Sodium Level 133, Potassium Level 4.2, Chloride Level 101, Carbon Dioxide Level 24, Anion Gap 8, Blood Urea Nitrogen 7, Creatinine 0.58, Estimat Glomerular Filtration Rate > 60, BUN/Creatinine Ratio 12, Glucose Level 117, Calcium Level 8.7 Discharge Home Medications: Active Scripts Active Oxycontin (Oxycodone HCl) 15 Mg Tab.er.12h 15 Mg PO Q12HR PAIN CONTROL FOR RECENT ABOVE THE KNEE AMPUTATION WITH PLANS TO TAPER Percocet 5-325 mg Tablet (Oxycodone HCl/Acetaminophen) 1 Each Tablet 2 Tab PO Q4H PRN MDD 6 Reported Levetiracetam 250 Mg Tablet 250 Mg PO BID Chantix (Varenicline Tartrate) 1 Mg Tablet 1 Mg PO BID Instructions to patient/family Please see electronic discharge instructions given to patient. Clinical Quality Measures DVT/VTE Risk/Contraindication: Risk Factor Score Per Nursin RFS Level Per Nursing on Admit: 2=Moderate CROW MARTINEZ MD Dec 06, 2017 15:23
== END 2017-11-30 13:52 | disposition home or self-care (01) | DRG 475 ==
LOC: SURG 08:08 → 4TH 13:55
PROVIDERS: ADMIT Surgery; ATTEND Surgery
PROC: 0Y6C0Z3 Detachment at Right Upper Leg, Low, Open Approach (ICD-10-PCS; principal; 2017-11-27 09:44)
DX: S82.891K Other fracture of right lower leg, subsequent encounter for closed fracture with nonunion (principal); T84.498A Other mechanical complication of other internal orthopedic devices, implants and grafts, initial encounter; M17.11 Unilateral primary osteoarthritis, right knee; I73.9 Peripheral vascular disease, unspecified; G40.909 Epilepsy, unspecified, not intractable, without status epilepticus; K59.00 Constipation, unspecified; M32.9 Systemic lupus erythematosus, unspecified
CPT/HCPCS: 36415; 76937; 80048; 85025; 86850; 86900; 86901; 87081; 88307; 94664

== ENCOUNTER → 2021-05-15 | Outpatient (CLI) | payer MEDICARE ==
[~2021-05-15] MED LIST changes: +CATHETER FLUSH 10 ML SYR IV PRN; +HOLD METFORMIN - RECEIVED CONTRAST 20 ML VIAL IV SCH; +IOHEXOL 350 MG/ML 100 ML (OMNIPAQUE 350) VIAL IV ONE; +NS 100 ML (IVPB) BAG IV ONE; +OXYC15TA73 PO; +OXYC1TAB87 PO
[2021-05-15 08:08] LABS: CREATININE SERUM 0.65 MG/DL (0.60-1.30)
--- NOTE | 2021-05-15 09:24 | Diagnostic Imaging Report ---
INDICATION: Fall with left rib pain AP and oblique views of the left ribs are obtained. There is no pneumothorax or pleural fluid collection. There is a nondisplaced fracture of the left 8th rib, best seen on the oblique view. IMPRESSION: Nondisplaced left 8th rib fracture. No pneumothorax or pleural fluid. Dictated by: Dictated on workstation # [id number]
--- NOTE | 2021-05-15 09:33 | Diagnostic Imaging Report ---
PROCEDURE: CT chest, abdomen, and pelvis with contrast. TECHNIQUE: Multiple contiguous axial images were obtained through the chest, abdomen, and pelvis after the administration of intravenous contrast. Auto Exposure Controls were utilized during the CT exam to meet ALARA standards for radiation dose reduction. INDICATION: Weight loss and recent fall. No prior studies are available for comparison. CT CHEST: No axillary, hilar or mediastinal lymphadenopathy is detected. No pericardial or pleural fluid is detected. No pulmonary infiltrates or contusions are seen. No nodules or masses are identified. There is no pneumothorax. There is a fracture involving the lateral portion of the left 8th rib. CT abdomen and pelvis: There is an 11 mm hyperdense lesion right lobe of the liver posteriorly, perhaps a hemangioma. Gallbladder is unremarkable. There is no biliary ductal dilatation. Pancreas and spleen are unremarkable. No focal laceration is seen. There is no adrenal or renal mass. Aorta is heavily calcified but nonaneurysmal. No central retroperitoneal or mesenteric lymphadenopathy is identified. The small and large bowel loops appear to be nonobstructed. There is moderate stool throughout the colon. No free fluid is seen. There is a cyst in the right adnexa measuring 3.2 cm, likely ovarian cyst. The bladder is unremarkable. No pelvic lymphadenopathy is seen. There is an acute appearing superior endplate fracture involving the L2 vertebral body without retropulsion. No other bony abnormalities are identified. IMPRESSION: 1. No evidence of abdominal or pelvic visceral injury. 2. No evidence of abdominal or pelvic lymphadenopathy. There is a hyperdense lesion right lobe of the liver, indeterminate but perhaps hemangioma. 3. Acute superior endplate fracture L2 vertebral body without evidence of retropulsion. 3. Left 8th rib fracture. No other significant abnormality in the chest is identified. Dictated by: Dictated on workstation # [id number]
== END ==
LOC: RAD 07:14
PROVIDERS: ATTEND Nurse Practitioner Family
DX: K76.9 Liver disease, unspecified (principal); S32.028A Other fracture of second lumbar vertebra, initial encounter for closed fracture; S22.32XA Fracture of one rib, left side, initial encounter for closed fracture; R63.4 Abnormal weight loss; Z87.891 Personal history of nicotine dependence; W19.XXXA Unspecified fall, initial encounter
CPT/HCPCS: 36415; 71100; 71260; 74177; 82565; 84520

== ENCOUNTER → 2021-05-22 | Outpatient (CLI) | payer MEDICARE ==
[~2021-05-22] MED LIST changes: -CATHETER FLUSH 10 ML SYR IV PRN; -HOLD METFORMIN - RECEIVED CONTRAST 20 ML VIAL IV SCH; -IOHEXOL 350 MG/ML 100 ML (OMNIPAQUE 350) VIAL IV ONE; -NS 100 ML (IVPB) BAG IV ONE
--- NOTE | 2021-05-22 08:38 | Diagnostic Imaging Report ---
PROCEDURE: US Hepatic (Liver). TECHNIQUE: Multiple Real-time grayscale images were obtained over the right upper quadrant in various projections. INDICATION: Liver lesion noted on CT. COMPARISON: Correlation is made with the CT study from 05/15/2021. FINDINGS: The liver is normal in size at 15.3 cm. There is a hypoechoic lesion in the lateral aspect of the right lobe of the liver which may correspond to the hyperdense lesion noted on CT. This measures approximately 10 mm x 8 mm. The portal vein is patent and shows normal direction of flow. No other liver masses are seen. The gallbladder is unremarkable. No wall thickening or biliary ductal dilatation is seen. The pancreas is unremarkable. The aorta is nonaneurysmal. The IVC is patent. The right kidney is without calculus or hydronephrosis. There is no ascites. IMPRESSION: Indeterminate 1 cm right lobe liver lesion. This does not have the sonographic characteristics of a benign hemangioma. An MRI of the abdomen utilizing liver protocol would be useful for further evaluation. Dictated by: Dictated on workstation # [id number]
== END ==
LOC: RAD 07:15
PROVIDERS: ATTEND Nurse Practitioner Family
DX: K76.9 Liver disease, unspecified (principal)
CPT/HCPCS: 76705

== ENCOUNTER → 2021-05-30 | Outpatient (CLI) | payer MEDICARE ==
[~2021-05-30] MED LIST changes: +GADOTERATE 0.5 MMOL/ML (CLARISCAN) 15 ML VIAL IV ONE
--- NOTE | 2021-05-30 18:33 | Diagnostic Imaging Report ---
PROCEDURE: MR imaging abdomen with and without contrast. TECHNIQUE: Multiplanar, multisequence MR imaging of the abdomen was performed with and without contrast. INDICATION: Right hepatic lobe lesion. There is an approximately 1 cm high T2 signal nodule present in the right lobe of the liver corresponding to hyperdensity seen on the CT scan dated 05/15/2021. This does demonstrate delayed contrast enhancement in a pattern most suggestive of cavernous hemangioma. There are other tiny areas of T2 signal within the liver which are too small to fully characterize but may represent small cysts or additional hemangiomas. The spleen, pancreas, adrenal glands and kidneys are unremarkable and there is no evidence of free fluid. No pathologic adenopathy is identified. Gallbladder has a normal appearance without evidence of biliary ductal dilatation. IMPRESSION: An approximately 1 cm lesion seen in the right lobe of the liver on previous CT study demonstrates appearance most typical of cavernous hemangioma. Otherwise, MRI of the abdomen is unremarkable. Dictated by: Dictated on workstation # [id number]
== END ==
LOC: RAD 14:45
PROVIDERS: ATTEND Nurse Practitioner Family
DX: K76.9 Liver disease, unspecified (principal)
CPT/HCPCS: 74183